=== PATIENT | male | born 1995 | race Caucasian/White ===

== ENCOUNTER 2016-04-30 02:44 | Emergency (ER) | payer OTHER ==
[2016-04-30] MEDS ORDERED: Morphine INJ* 10 MG/ML 1 ML CARPUJECT SUBCUT ONE (03:16)
--- NOTE | 2016-04-30 03:32 | ED ---
Quinn Garrett Billy, scribed for Jose A Rivera MD on 04/30/16 at 0317 . Upper Extremity Pain - HPI Summary HPI Summary: Patient is a 20 year-old male coming to [facility] presenting with sudden onset of constant right clavicle pain after he fell when he was playing [employer]. Pain is worse with movement. He was given 50 mcg fentanyl AGATE SETTER by EMS, which improved his symptoms. EMS describes positive deformity. - History of Current Complaint Chief Complaint: EDChestWallPain Stated Complaint: CHEST INJURY Time Seen by Provider: 04/30/16 02:50 Hx Obtained From: Patient Mechanism Of Injury: Fall From A Standing Position Onset/Duration: Started Hours Ago, Still Present Timing: Constant Severity Initially: Moderate Severity Currently: Moderate Pain Location: Collar Aggravating Factor(s): Movement Alleviating Factor(s): Other - fentanyl Associated Signs & Symptoms: Positive: Other - deformity - Allergies/Home Medications Allergies/Adverse Reactions: Allergies Allergy/AdvReac Type Severity Reaction Status Date / Time Penicillins Allergy Hives/Diff. Verified 04/30/16 02:58 Breathing/I tching Home Medications: Home Medications ValACYclovir (*) 04/30/16 [History] PMH/Surg Hx/FS Hx/Imm Hx Endocrine/Hematology History: Denies: Hx Diabetes Respiratory History: Denies: Hx Asthma - Immunization History Date of Tetanus Vaccine: utd Date of Influenza Vaccine: none Infectious Disease History: No Infectious Disease History: Denies: Traveled Outside the [place] in Last 30 Days - Family History Known Family History: Negative: Cardiac Disease, Hypertension, Diabetes - Social History Alcohol Use: Weekly Alcohol Amount: 3 Substance Use Type: Reports: Marijuana Substance Use Comment - Amount & Last Used: last weekend Smoking Status (MU): Never Smoked Tobacco Review of Systems Negative: Fever Positive: Other - right clavicle pain All Other Systems Reviewed And Are Negative: Yes Physical Exam Triage Information Reviewed: Yes Vital Signs On Initial Exam: Initial Vitals Temp Pulse Resp BP Pulse Ox 98.6 F 70 14 117/54 97 04/30/16 02:50 04/30/16 02:50 04/30/16 02:50 04/30/16 02:50 04/30/16 02:50 Vital Signs Reviewed: Yes Appearance: Positive: Well-Appearing, Pain Distress - mild discomfort Skin: Positive: Warm Head/Face: Positive: Normal Head/Face Inspection Eyes: Positive: CHAY ENT: Positive: Hearing grossly normal Neck: Positive: Supple Respiratory/Lung Sounds: Positive: Breath Sounds Present, Other - deformity rt mid clavicle Cardiovascular: Positive: RRR Abdomen Description: Positive: Soft Bowel Sounds: Positive: Present Musculoskeletal: Positive: Strength/ROM Intact - Jered Coma Scale Coma Scale Total: 15 Diagnostics - Vital Signs Vital Signs Temp Pulse Resp BP Pulse Ox 04/30/16 02:50 98.6 F 70 14 117/54 97 - Laboratory Lab Statement: Any lab studies that have been ordered have been reviewed, and results considered in the medical decision making process. - Radiology Clavicle XR Radiology Interpretation Completed By: ED Physician - Midshaft clavicle fracture. Course/Dx - Diagnoses Provider Diagnoses: Clavicle fracture Discharge - Discharge Plan Condition: Stable Disposition: HOME Prescriptions: Naproxen TAB* [Naprosyn TAB*] 500 mg PO BID #30 tab Patient Education Materials: Clavicle Fracture (ED) Referrals: [facility] [Outside] Enrique Holden MD [Medical Doctor] - [facility] [place]] Additional Instructions: FOLLOW UP WITH DR. HOLDEN, ORTHOPEDIC SURGEON. The documentation as recorded by the Quinn philip Billy accurately reflects the service I personally performed and the decisions made by , Jose A Rivera MD.
[2016-04-30 03:36] VITALS: BP 114/64
[2016-04-30] MEDS ORDERED: oxyCODONE/Acetamin 5/325 MG* TAB PO ONE (03:39)
--- NOTE | 2016-04-30 08:01 | RAD ---
HISTORY: Pain, trauma, obvious deformity of the right clavicle COMPARISONS: None VIEWS: 2, frontal and frontal oblique views of the right clavicle FINDINGS: BONE DENSITY: Normal. BONES: There is comminuted and angulated fracture of the distal (lateral) right clavicle. JOINTS: There is no arthropathy. ALIGNMENT: There is no dislocation. SOFT TISSUES: Unremarkable. OTHER FINDINGS: None. IMPRESSION: COMMINUTED AND ANGULATED FRACTURE OF THE RIGHT CLAVICLE
== END 2016-04-30 03:45 | disposition home or self-care (01) ==
LOC: ED 02:44
DX: S42.001A Fracture of unspecified part of right clavicle, initial encounter for closed fracture (principal); W19.XXXA Unspecified fall, initial encounter; Y93.9 Activity, unspecified; Y92.9 Unspecified place or not applicable; Y99.9 Unspecified external cause status
CPT/HCPCS: 96374; 99282; A9270-GY; J2270

== ENCOUNTER 2016-05-05 11:36 | Day surgery (SDC) | payer OTHER ==
[~2016-05-05 11:36] MED LIST: Buffered Lidocaine 1% SYR 3ML* 3 ML/SYR SYRINGE INTRADERM ONE; Dexamethasone IV* 4 MG/ML 1 ML (4 MG) IV SLOW PU ONE; Famotidine TAB* 20 MG PO ONE
[2016-05-05] MEDS ORDERED: Dexamethasone IV* 4 MG/ML 1 ML (4 MG) ONE (12:14)
[2016-05-05] MEDS ORDERED: Famotidine IV* 10 MG/ML 2 ML (20 mg) ONE (12:14)
[2016-05-05] MEDS ORDERED: Clindamycin 900 MG IVPREMIX(* 900 MG/50 ML SDV IV ONE (12:14)
[2016-05-05] MEDS ORDERED: Atracurium* 10 MG/ML 10 ML VIAL ONE (12:32)
[2016-05-05] MEDS ORDERED: fentaNYL* 50 MCG/ML 5 ML VIAL (250 MCG VIAL) ONE (12:32)
[2016-05-05] MEDS ORDERED: Midazolam* 1 MG/ML 5 ML VIAL (5 MG) ONE (12:32)
[2016-05-05] MEDS ORDERED: Lidocaine 2% PF * 5 ML VIAL ONE (12:33)
[2016-05-05] MEDS ORDERED: Ketorolac INJ* 30 MG/ML 1 ML VIAL ONE (12:33)
[2016-05-05] MEDS ORDERED: Ondansetron INJ* 2 MG/ML VIAL ONE (12:33)
[2016-05-05] MEDS ORDERED: Propofol* 10 MG/ML 20 ML BTL IV PUSH ONE (12:33)
[2016-05-05] MEDS ORDERED: Bupivacaine 0.5% SDV PF* 30 ML VIAL ONE (13:06)
[2016-05-05] MEDS ORDERED: DiMENhydriNATE IV* 50 MG/ML VIAL IV PUSH PRN (13:34)
[2016-05-05] MEDS ORDERED: Ondansetron INJ* 2 MG/ML VIAL IV PRN (13:34)
[2016-05-05] MEDS ORDERED: fentaNYL* 50 MCG/ML 2 ML VIAL (100 MCG VIAL) IV PRN (13:34)
[2016-05-05] MEDS ORDERED: oxyCODONE/Acetamin 5/325 MG* TAB PO PRN (13:34)
[2016-05-05] MEDS ORDERED: HYDROmorphone INJ* 1 MG/ML CARPUJECT SYRINGE IV PRN (13:34)
[2016-05-05] MEDS ORDERED: Bupivacaine 0.25% SDV* 30 ML ONE (13:42)
[2016-05-05] MEDS ORDERED: fentaNYL* 50 MCG/ML 2 ML VIAL (100 MCG VIAL) ONE ×3 (14:16→16:42)
--- NOTE | 2016-05-05 17:48 | RAD ---
Indication: Right clavicle fracture, internal fixation 2 views of the right clavicle demonstrates internal fixation of a right clavicle fracture. Alignment appears to be in near anatomic alignment. IMPRESSION: Fracture fragments appear in near anatomic alignment. Internal fixation comminuted mid clavicle fracture.
[2016-05-05] MEDS ORDERED: oxyCODONE/Acetamin 5/325 MG* TAB ONE (17:59)
[2016-05-05 18:01] VITALS: BP 152/82
--- NOTE | 2016-05-06 01:12 | OP ---
DATE OF OPERATION: 05/05/16 [facility] DATE OF : 89 SURGEON: Bob Rubalcava MD STEAM AND POWER SUPERVISOR: Coco De Leon PA-C. An assistant director of plant operations was needed for the entirety of the case to establish positioning, retraction, and was utilized throughout all portions. ANESTHESIOLOGIST: Dr. Gagnon. ANESTHESIA: General. PRE-OP DIAGNOSIS: Right clavicle fracture. POST-OP DIAGNOSIS: Right clavicle fracture. OPERATIVE PROCEDURE: Open reduction and internal fixation of the right clavicle. COMPLICATIONS: None. ESTIMATED BLOOD LOSS: 25. IMPLANTS: Synthes 4.5 LC-DCP plate with 6 screws. INDICATIONS: Alvarado is a 20-year-old right-handed male who was playing [employer] on 04/29/16. He sustained immediate injury and had pain. He went to the ER, was diagnosed with a mid shaft comminuted clavicle fracture with shortening. He was having persistent pain. He presented to the clinic the next day. After extensive discussion of the risks and benefits of surgery versus operative management, he elected to proceed with operative treatment. Risks and benefits were discussed at length including but are not limited to bleeding, infection, damage to nerves, vessels, surrounding structures, the wound not healing, persistent pain, need for further surgery, risk of anesthesia , stiffness, symptomatic hardware, fracture of the plate, fracture around the clavicle, and he has elected to proceed. DESCRIPTION OF PROCEDURE: The patient was greeted in the preoperative area by the attending surgeon. The correct extremity was marked, and consent was confirmed. The patient was brought to the operating suite, where he was placed in the supine position on the operating table. He then underwent general anesthesia with LMA intubation, after which he was positioned in a lazy beach chair position and after obtaining x-ray guidance to the bed to confirm good positioning, his right shoulder was prepped and draped in the usual sterile fashion with chlorhexidine soap and alcohol wipe and a final prep with ChloraPrep. After appropriate surgical pause indicating side, site, procedure, and administration of antibiotics, an incision centered over the clavicle was made sharply with a 15 blade. The soft tissues were carefully dissected. Hemostasis was obtained at all times. The fascial layer was incised with plans for later closure. The clavicle was readily identified medially and had torn through the fascia. The dissection was taken laterally which found the large butterfly fragment. All ends of the clavicle were clean. Curette was used to remove the amount of hematoma. Soft tissue was removed and the pieces were attempted to wilcox in together. The butterfly fragment initially was provisionally fixed with a small 2-7 screw, but it could not maintain stability. Therefore, the medial and lateral edges of the clavicle were then approximated. A size 7-hole plate was then used to secure the screws. First screws were placed medially then laterally after some manipulation of the plate to fit better. After these were completed, 2 more medial screws and one more far lateral and second one closer to the fracture site was lagged through the fractured fragment. Once the x-rays were obtained, there was found to be acceptable alignment. The butterfly fragment was then secured by tying a 0 Vicryl around the fragment and around the plate which helped to provisionally hold it together. Final images were obtained. The shoulder was taken through ROM and the construct was stable. The wound was copiously irrigated with sterile saline. Fascial layer was closed with 0 Vicryl, the subcutaneous tissues with 2-0 Vicryl and the skin with Monocryl. Sterile dressings were applied and he was placed back in a sling. He was awoken from anesthesia and transferred to the PACU in stable condition. POSTOPERATIVE PLAN: He will be nonweightbearing. He will be allowed to work on gentle range of motion as tolerated. He will be discharged with pain medication and antibiotics. DVT prophylaxis was considered, but deferred due to no previous, personal, or family history. I will see the patient back in 10 to 14 days. [id number]/[facility] #: [id number] WILY
--- NOTE | 2016-05-06 12:53 | RAD ---
INDICATION: Right clavicle fracture, ORIF COMPARISONS: April 30, 2016 TECHNIQUE: Fluoroscopy was provided for a surgical procedure. Total fluoroscopy time is: 13.8 FINDINGS: Spot images demonstrate internal fixation of the right clavicle IMPRESSION: FLUOROSCOPY WAS PROVIDED FOR A SURGICAL PROCEDURE CPT II Codes: 6045F
== END 2016-05-05 18:37 | disposition home or self-care (01) ==
LOC: OR 11:36
PROVIDERS: ATTEND Orthopaedic Surgery
DX: S42.021A Displaced fracture of shaft of right clavicle, initial encounter for closed fracture (principal); W19.XXXA Unspecified fall, initial encounter; Y93.74 Activity, frisbee; Y92.9 Unspecified place or not applicable
CPT/HCPCS: A9270-GY; C1713; C1776; J1100; J1885; J2250; J2405; J2704; J3010